=== PATIENT | female | born 1975 | race African-American/Black ===

== ENCOUNTER 2017-09-15 03:50 | Emergency (ER) | payer MEDICAID, SELFPAY ==
[2017-09-15 05:02] LABS: BHCG - Serum Negative (NEGATIVE); Pregs Control Background? CLEAR/WHITE (CLR/WHITE); Pregs Control Bar Appear? YES (CONTROL BAR)
[2017-09-15] MEDS ORDERED: Lidocaine 1% w/Epinephrine 1:100K 20 ML VIAL ONE (05:05)
[2017-09-15] MEDS ORDERED: Bupivacaine 0.5% 10 ML VIAL ONE (05:05)
[2017-09-15] MEDS ORDERED: Lidocaine Viscous Sol 2% 15 ml UD Cup ONE (05:05)
[2017-09-15 05:18] LABS: ALT (SGPT) Less than 7 U/L (8-55); AST (SGOT) 9 U/L (5-34); Albumin 3.9 g/dL (3.5-5.0); Alkaline Phosphatase 69 U/L (40-150); Anion Gap 11 mmol/L (10-20); BUN (Urea Nitrogen) 7 mg/dL (7.0-18.7); Bilirubin, Total 0.2 mg/dL (0.2-1.2); Calc. Creatinine Clearance 0 mL/min (70-130); Calcium 9.2 mg/dL (7.8-10.44); Carbon Dioxide 23 mmol/L (22-29); Chloride 104 mmol/L (98-107); Estimated GFR-MDRD Greater than 90; Globulin 3.9 g/dL (2.4-3.5); Glucose 96 mg/dL (70-105); Potassium 3.4 mmol/L (3.5-5.1); Protein, Total 7.8 g/dL (6.0-8.3); Sodium 135 mmol/L (136-145)
[2017-09-15 05:34] LABS: #Basophils 0.1 thou/uL (0.0-0.2); #Eosinphils 0.3 thou/uL (0.0-0.7); #Lymphocytes 2.7 thou/uL (1.20-3.40); #Monocytes 0.7 thou/uL (0.11-0.59); #Neutrophils 5.7 thou/uL (1.40-6.50); %Basophils 1.1 % (0.0-1.0); %Eosinophils 2.7 % (0.0-10.0); %Lymphocytes 28.4 % (21.0-51.0); %Monocytes 7.6 % (0.0-10.0); %Neutrophils 60.1 % (42.0-75.0); Anisocytosis SLIGHT = 6-15 cells (100X) (0-5/hpf); Hemoglobin 7.5 g/dL (12.0-16.0); Hypochromia SLIGHT = 6-15 cells (100X) (0-5/hpf); MDiff Complete? YES; Mean Corpuscular HGB CONC 29.4 g/dL (32.0-36.0); Mean Corpuscular Hemoglobin 20.3 pg (27.0-31.0); Mean Platelet Volume 8.9 fL (7.4-10.4); Microcytosis SLIGHT = 6-15 cells (100X) (0-5/hpf); PLT Morphology Comment Appears Adequate; Platelet Count 363 thou/uL (130-400); RBC Distribution Width 19.4 % (11.5-14.5); Stomatocytes SLIGHT = 2-5 cells (100X) (0-1/hpf); White Blood Cell (WBC) Count 9.5 thou/uL (4.8-10.8)
[2017-09-15] MEDS ORDERED: Ketorolac Tromethamine 30 MG/ML VIAL ONE (05:54)
[2017-09-15] MEDS ORDERED: Clindamycin/D5W 900 mg/50 ml Premix Bag ONE (06:17)
--- NOTE | 2017-09-15 10:11 | CT ---
PRELIMINARY REPORT/[facility]/EMERGENTY AFTER-HOURS PROCEDURE CT Neck With Intravenous Contrast EXAM DATE/TIME: 09/15/2017 4:50 AM CLINICAL HISTORY: 41 years old, female; Pain; Other: Facial swelling/tooth pain; Patient HX: F42 reports to ed C/O dent al pain. Pt reports tooth pain started x2 weeks ago. Pt reports she went to ed in [place] and was to ld to follow-up with dentist. Pt reports the pain has been persistent since ed visit. Pt reports faci al swelling started yesterday. Pt reports throat pain on the right side. Pt took tylenol and amoxicil shaye this morning TECHNIQUE: Axial computed tomography images of the neck with intravenous contrast. Coronal and sagittal reformatted images were created and reviewed. COMPARISON: No relevant prior studies available. FINDINGS: Oropharynx: Unremarkable. Hypertrophy of the tonsils. No peritonsillar abscess. Hypopharynx: Unremarkable. Larynx: Unremarkable. Normal epiglottis. Trachea: Unremarkable. Retropharyngeal space: Unremarkable. Submandibular/parotid glands: Unremarkable. Glands are normal in size. Thyroid: Unremarkable. No enlarged or calcified nodules. Bones/joints: No acute fracture. Soft tissues: Unremarkable. Vasculature: No acute findings. Lymph nodes: Unremarkable. No lymphadenopathy. Dental: Obvious dental decay involving the posterior molar and likely the second molar on the right w ith periapical abscess. Phlegmonous changes are present in the soft tissues. Possible small abscess o f approximately 11 mm in maximal dimension adjacent to the above. Lung apices: Unremarkable as visualized. IMPRESSION: Obvious dental decay involving the posterior molar and likely the second molar on the right with rick apical abscess. Phlegmonous changes are present in the soft tissues. Possible small abscess of approx imately 11 mm in maximal dimension adjacent to the above. Thank you for allowing us to participate in the care of your patient. Dictated and Authenticated by: Darren Wu MD 09/15/2017 5:33 AM Central Time ([place] & [place]) FINAL REPORT EMERGENCY AFTER HOURS STUDY CT NECK WITH CONTRAST: DATE: 10-05-17 TIME: 4:53 A.M. History: 41-year-old female with right jaw pain and edema. FINDINGS: Generalized poor dentition throughout the jaw. In particular, there are two carious adjacent right posterior mandibular molars, with a periapical cy st (radicular cyst) around both roots. This radicular cyst is connected to a tiny cortical osseous de fect through at the buccal side of the right mandibular cortex. Abutting this defect, there is an simran roximately 1 x 0.5 cm mixed density subtle lesion in the gingiva, which may represent a tiny dental a bscess/phlegmon. There is extensive edema throughout the right buccal space, with thickening of the a djacent right platysma muscle, and edema in the overlying subcutaneous fat superficial to it. There i s no abscess within the soft tissues. There are enlarged, reactive right level IB submandibular react prakash lymph nodes. To a lesser degree, there are mildly enlarged submental level 1A lymph nodes and con tralateral left submandibular level 1B lymph nodes. Bilateral palatine tonsils are enlarged, and almo st contact each other at midline. Lingual tonsil and adenoids are also enlarged. There is diffuse thi ckening of the true and false vocal cords and the aryepiglottic folds. There are other carious teeth. There is a periapical cyst involving a right posterior maxillary molar. Bilateral tympanomastoid cav ities are grossly clear. All of the paranasal sinuses are clear. IMPRESSION: 1. Right odontogenic acute infection: Periapical (radicular) cyst around the roots of right posterior lower molars, communicating with a lateral osseous cortical defect, and adjacent probable tiny denta l abscess/phlegmon in the right gingiva. 2. Extensive edema in the surrounding soft tissues. 3. Diffuse hyperplasia of Waldeyer's ring. 4. Laryngitis, chronic versus acute. Code QA POS: TPC
[2017-09-15] MEDS ORDERED: ISOVUE-370 76%-LOCM 1 ML ONE (11:24)
== END 2017-09-15 07:25 | disposition home or self-care (01) ==
LOC: ERS 03:50
DX: K04.7 Periapical abscess without sinus (principal); E78.00 Pure hypercholesterolemia, unspecified; F41.9 Anxiety disorder, unspecified
CPT/HCPCS: 64400; 70491; 80053; 84703; 85025; 85652; 86140; 96361; 96365; 96375; J1885; J2001; J3490

== ENCOUNTER 2018-12-04 14:54 | Outpatient (CLI) | payer OTHER ==
--- NOTE | 2018-12-04 15:46 | RAD ---
Exam:Left tibia fibula 2 views HISTORY: Disability exam. COMPARISON: None FINDINGS: No fracture. No cortical irregularity or periosteal reaction. IMPRESSION: Unremarkable left tibia fibula 2 views
== END 2018-12-04 14:55 | disposition home or self-care (01) ==
LOC: BICRAD 14:54
PROVIDERS: ATTEND Internal Medicine
DX: Z02.71 Encounter for disability determination (principal)

== ENCOUNTER 2019-03-13 09:06 | Emergency (ER) | payer SELFPAY ==
[2019-03-13 09:46] LABS: #Basophils 0.1 thou/uL (0.0-0.2); #Eosinphils 0.2 thou/uL (0.0-0.7); #Lymphocytes 2.4 thou/uL (1.20-3.40); #Monocytes 0.7 thou/uL (0.11-0.59); #Neutrophils 3.5 thou/uL (1.40-6.50); %Eosinophils 3.6 % (0.0-10.0); %Lymphocytes 35.1 % (21.0-51.0); %Monocytes 9.5 % (0.0-10.0); %Neutrophils 50.8 % (42.0-75.0); Hemoglobin 8.8 g/dL (12.0-16.0); Mean Corpuscular HGB CONC 30.2 g/dL (32.0-36.0); Mean Corpuscular Hemoglobin 23.5 pg (27.0-31.0); Mean Corpuscular Volume 77.9 fL (78.0-98.0); Mean Platelet Volume 7.8 fL (7.4-10.4); Platelet Count 390 thou/uL (130-400); RBC Distribution Width 18.8 % (11.5-14.5); Red Blood Cell (RBC) Count 3.73 mill/uL (4.20-5.40); White Blood Cell (WBC) Count 6.8 thou/uL (4.8-10.8)
[2019-03-13 10:03] LABS: BHCG - Serum Negative (NEGATIVE); Pregs Control Background? CLEAR/WHITE (CLR/WHITE); Pregs Control Bar Appear? YES (CONTROL BAR)
[2019-03-13 10:08] LABS: ALT (SGPT) Less than 7 U/L (8-55); AST (SGOT) 10 U/L (5-34); Albumin 3.8 g/dL (3.5-5.0); Alkaline Phosphatase 81 U/L (40-110); Anion Gap 11 mmol/L (10-20); BUN (Urea Nitrogen) 10 mg/dL (7.0-18.7); Bilirubin, Total Less than 0.2 mg/dL (0.2-1.2); Calc. Creatinine Clearance 0 mL/min (70-130); Calcium 8.7 mg/dL (7.8-10.44); Carbon Dioxide 23 mmol/L (22-29); Chloride 108 mmol/L (98-107); Estimated GFR-MDRD Greater than 90; Globulin 3.6 g/dL (2.4-3.5); Glucose 121 mg/dL (70-105); Potassium 3.6 mmol/L (3.5-5.1); Protein, Total 7.4 g/dL (6.0-8.3); Sodium 138 mmol/L (136-145)
== END 2019-03-13 10:29 | disposition home or self-care (01) ==
LOC: ERS 09:06
DX: D64.9 Anemia, unspecified (principal); E78.00 Pure hypercholesterolemia, unspecified; F41.9 Anxiety disorder, unspecified; Z86.73 Personal history of transient ischemic attack (TIA), and cerebral infarction without residual deficits
CPT/HCPCS: 36415; 80053; 84703; 85025; 99284

== ENCOUNTER 2021-07-15 10:09 | Outpatient (CLI) | payer OTHER ==
[2021-07-15 11:18] LABS: #Basophils 0.1 10x3/uL (0.0-0.2); #Eosinphils 0.2 10x3/uL (0.0-0.5); #Monocytes 0.5 10x3/uL (0.0-1.1); #Neutrophils 4.5 10x3/uL (1.5-8.4); %Basophils 0.7 % (0.0-2.0); %Eosinophils 2.5 % (0.0-6.0); %Lymphocytes 31.2 % (18.0-47.0); %Monocytes 5.9 % (0.0-10.0); %Neutrophils 59.4 % (40.0-75.0); Hemoglobin 11.6 g/dL (12.0-15.5); Mean Corpuscular Hemoglobin 26.3 pg (27.0-33.0); Mean Corpuscular Volume 87.8 fl (81.6-98.3); Mean Platelet Volume 9.6 fl (7.4-10.4); Platelet Count 353 10x3/uL (150-450); Red Blood Cell (RBC) Count 4.41 10x6/uL (3.90-5.03); White Blood Cell (WBC) Count 7.6 10x3/uL (3.5-10.5)
[2021-07-15 11:44] LABS: Anion Gap 12 mmol/L (10-20); BUN (Urea Nitrogen) 10 mg/dL (7.0-18.7); Calc. Creatinine Clearance 0 mL/min (70-130); Calcium 9.3 mg/dL (7.8-10.44); Carbon Dioxide 29 mmol/L (22-29); Chloride 103 mmol/L (98-107); Glucose 128 mg/dL (70-105); Potassium 3.8 mmol/L (3.5-5.1); Sodium 140 mmol/L (136-145)
[2021-07-15 20:34] LABS: SARS-CoV-2 PCR by NAA Not Detected (NotDetected)
== END 2021-07-15 10:10 | disposition home or self-care (01) ==
LOC: LABBT 10:09
PROVIDERS: ATTEND Surgery
DX: Z01.812 Encounter for preprocedural laboratory examination (principal); K43.2 Incisional hernia without obstruction or gangrene; Z20.822 Contact with and (suspected) exposure to COVID-19
CPT/HCPCS: 80048; 85025; U0003; U0005

== ENCOUNTER → 2021-07-20 | Day surgery (SDC) | payer OTHER ==
[2021-07-16 09:49] VITALS: BMI 27.9
[~2021-07-20] MED LIST: Bupivacaine 0.25% HCL 30 ML VIAL ONE; Dexamethasone 20 MG/5 ML VIAL ONE; Fentanyl 100 MCG/2 ML VIAL ONE; HYDROcodone/Acetaminophen 5/325 mg Tablet ONE; Ketorolac Tromethamine 30 MG/ML VIAL ONE; Levofloxacin 500 mg/D5W 100 ml Premix Bag ONE; Lidocaine 1% PF 5 ML VIAL ONE; Lidocaine 1% w/Epinephrine 1:100K 20 ML VIAL ONE; Midazolam HCl 2 mg/2 ml Vial ONE; Ondansetron PF 4 MG/2 ML Vial ONE; PROPOFOL 200 MG/20 ML VIAL ONE; Rocuronium Bromide 50 MG/5 ML VIAL ONE; SUGAMMADEX SODIUM 200 MG/2 ML VIAL ONE; fentaNYL Citrate/PF 100 MCG/2 ML SYRINGE ONE
== END | disposition home or self-care (01) ==
LOC: SDC 11:18
PROVIDERS: ATTEND Surgery
PROC: 8E0W4CZ Robotic Assisted Procedure of Trunk Region, Percutaneous Endoscopic Approach (ICD-10-PCS; principal; 2021-07-20)
PROC: 0WUF4JZ Supplement Abdominal Wall with Synthetic Substitute, Percutaneous Endoscopic Approach (ICD-10-PCS; principal; 2021-07-20)
DX: K43.2 Incisional hernia without obstruction or gangrene (principal); Z79.82 Long term (current) use of aspirin; Z88.0 Allergy status to penicillin; Z91.041 Radiographic dye allergy status
CPT/HCPCS: C1781; J1100; J1885; J1956; J2250; J2405; J2704; J3010; S0020

== ENCOUNTER 2021-09-08 11:49 | Outpatient (CLI) | payer MEDICAID | END 2021-09-08 11:50 | disposition home or self-care (01) | LOC: BICMAMMO 11:49 → EDSTATUS 12:00 | PROVIDERS: ATTEND Family Medicine | DX: Z12.31 Encounter for screening mammogram for malignant neoplasm of breast (principal); N64.89 Other specified disorders of breast | CPT/HCPCS: 77067 ==

== ENCOUNTER 2021-09-10 13:18 | Outpatient (CLI) | payer MEDICAID | END 2021-09-10 13:19 | disposition home or self-care (01) | LOC: BICMAMMO 13:18 | PROVIDERS: ATTEND Family Medicine | DX: N64.89 Other specified disorders of breast (principal); N63.25 Unspecified lump in the left breast, overlapping quadrants | CPT/HCPCS: G0279 ==